=== PATIENT | male | born 2000 | race Caucasian/White ===

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

== ENCOUNTER 2021-12-20 18:14 | Emergency (ER) | payer OTHER ==
[~2021-12-20] VITALS: Ht 182.9 cm; Wt 59.9 kg
[2021-12-20 19:16] LABS: URINE BILIRUBIN NEGATIVE (Negative); URINE BLOOD NEGATIVE (Negative); URINE CLARITY CLEAR; URINE COLOR YELLOW; URINE GLUCOSE-RANDOM NEGATIVE (Negative); URINE KETONES NEGATIVE (Negative); URINE LEUKOCYTES-REFLEX NEGATIVE (Negative); URINE NITRITE-REFLEX NEGATIVE (Negative); URINE PROTEIN NEGATIVE (Negative); URINE SPECIFIC GRAVITY 1.025 (1.005-1.030); URINE UROBILINOGEN 0.2 E.U./dl (0.2-1.0)
[2021-12-20 19:23] LABS: AMP/METHAMP Negative (Negative); BARBITURATES Negative (Negative); BENZODIAZEPINES Negative (Negative); COCAINE Negative (Negative); METHADONE Negative (Negative); OPIATES Negative (Negative); PCP Negative (Negative); THC Negative (Negative)
[2021-12-20 19:24] LABS: ABSOLUTE BASOPHILS 0.1 thou/uL (0.0-0.2); ABSOLUTE LYMPHOCYTES 2.4 thou/uL (0.8-5.3); ABSOLUTE MONOCYTES 1.3 thou/uL (0.0-1.2); ABSOLUTE NEUTROPHILS 15.6 thou/uL (1.6-8.1); BASOPHILS 0.3 %; EOSINOPHILS 0.2 %; HEMATOCRIT 44.1 % (42.0-52.0); HEMOGLOBIN 15.1 gm/dL (14.0-18.0); LYMPHOCYTES 12.2 %; MCH 31.1 pg (26.0-34.0); MCHC 34.3 g/dL (28.0-37.0); MCV 90.6 fL (80.0-100.0); MONOCYTES 6.5 %; MPV 10.2 fl. (7.2-11.1); NUCLEATED RBCS 0 /100WBC; PLATELET COUNT* 238 thou/uL (150-400); POLYS 80.8 %; RBC 4.86 mil/uL (4.50-6.00); WBC 19.3 thou/uL (4.0-11.0)
[2021-12-20 19:35] LABS: CALCIUM 9.5 mg/dL (8.5-10.1); POTASSIUM 3.8 mmol/L (3.5-5.1)
[2021-12-20 19:50] LABS: ALBUMIN 4.1 g/dL (3.4-5.0); TOTAL BILIRUBIN 0.7 mg/dL (<0.1-1.0); TOTAL PROTEIN 8.4 g/dL (6.4-8.2)
[2021-12-20] MEDS ORDERED: PROAIR HFA8.5 GM INH (23:07)
[2021-12-20] MEDS ORDERED: PREDNISONE 20 M20 MG PO (23:07)
[2021-12-20 23:25] VITALS: BP 120/67
--- NOTE | 2021-12-21 16:18 | EKG ---
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: S : 2000 Requested By: Aurelia Wong Order Number: [id number] Danis MD: Ephraim Garcia Measurements Intervals [place] Rate: 124 P: 68 AR: 115 QRS: 86 QRSD: 79 T: 35 QT: 275 QTc: 395 Interpretive Statements Sinus tachycardia Baseline wander in lead(s) V1,V3 No previous ECG available for comparison Electronically Signed On 12-21-2021 16:18:26 WEB SUPPORT ENGINEER by Ephraim Garcia [email or web address] <ELECTRONICALLY SIGNED> By: Ephraim Garcia MD, [facility] 12/21/21 1618 21 21 Ephraim Garcia MD, [facility] /EPI
== END 2021-12-20 23:25 | disposition home or self-care (01) ==
LOC: M.ERS 18:14
PROVIDERS: Student in an Organized Health Care Education/Training Program
DX: U07.1 COVID-19 (principal); J12.82 Pneumonia due to coronavirus disease 2019; I10 Essential (primary) hypertension; E78.00 Pure hypercholesterolemia, unspecified; Z98.890 Other specified postprocedural states; Z77.22 Contact with and (suspected) exposure to environmental tobacco smoke (acute) (chronic)